=== PATIENT | female | born 1935 | race Caucasian/White ===

== ENCOUNTER 2021-07-22 12:09 | Observation (INO) | payer MEDICARE ==
[2021-07-22] MEDS ORDERED: Meclizine HCl 25 MG TAB ONE (12:53)
[2021-07-22 12:58] LABS: #Monocytes 0.2 thou/uL (0.11-0.59); #Neutrophils 4.8 thou/uL (1.40-6.50); %Basophils 0.2 % (0.0-1.0); %Eosinophils 0.2 % (0.0-10.0); %Lymphocytes 16.7 % (21.0-51.0); %Monocytes 3.3 % (0.0-10.0); %Neutrophils 79.5 % (42.0-75.0); Hemoglobin 12.8 g/dL (12.0-16.0); Mean Corpuscular HGB CONC 34.9 g/dL (32.0-36.0); Mean Corpuscular Hemoglobin 31.8 pg (27.0-31.0); Mean Platelet Volume 7.2 fL (7.4-10.4); Platelet Count 216 thou/uL (130-400); RBC Distribution Width 11.6 % (11.5-14.5); Red Blood Cell (RBC) Count 4.03 mill/uL (4.20-5.40); White Blood Cell (WBC) Count 6.1 thou/uL (4.8-10.8)
[2021-07-22 13:31] LABS: ALT (SGPT) 10 U/L (8-55); AST (SGOT) 13 U/L (5-34); Albumin 3.7 g/dL (3.4-4.8); Alkaline Phosphatase 87 U/L (40-110); Anion Gap 13 mmol/L (10-20); BUN (Urea Nitrogen) 18 mg/dL (9.8-20.1); Bilirubin, Total 1.3 mg/dL (0.2-1.2); Calc. Creatinine Clearance 0 mL/min (70-130); Calcium 9.1 mg/dL (7.8-10.44); Carbon Dioxide 26 mmol/L (23-31); Chloride 100 mmol/L (98-107); Globulin 2.4 g/dL (2.4-3.5); Glucose 136 mg/dL (83-110); Lipase 40 U/L (8-78); Potassium 3.9 mmol/L (3.5-5.1); Protein, Total 6.1 g/dL (5.8-8.1); Sodium 135 mmol/L (136-145)
[2021-07-22] MEDS ORDERED: Aspirin Chewable 81 MG TAB ONE (14:50)
[2021-07-22] MEDS ORDERED: Acetaminophen 650 MG Suppository PR PRN (17:22)
[2021-07-22] MEDS ORDERED: Calcium Carbonate 500 MG ChewTAB PO PRN (17:22)
[2021-07-22] MEDS ORDERED: Senokot S 8.6-50 MG TAB PO PRN (17:22)
[2021-07-22] MEDS ORDERED: Ondansetron PF 4 MG/2 ML Vial IVP PRN (17:22)
[2021-07-22] MEDS ORDERED: Acetaminophen 325 MG TAB PO PRN (17:22)
[2021-07-22] MEDS ORDERED: Ondansetron ODT 4 MG TAB PO PRN (17:22)
[2021-07-22 23:27] VITALS: BMI 23.1
[2021-07-23 06:21] LABS: Hemoglobin A1c 5.2 % (4.0-6.0)
[2021-07-23 06:36] LABS: Anion Gap 11 mmol/L (10-20); BUN (Urea Nitrogen) 17 mg/dL (9.8-20.1); Calc. Creatinine Clearance 63 mL/min (70-130); Calcium 8.9 mg/dL (7.8-10.44); Carbon Dioxide 28 mmol/L (23-31); Cardiac Risk 2.4 (Less than 4.5); Chloride 103 mmol/L (98-107); Cholesterol 104 mg/dl (< 200 Desired); Glucose 90 mg/dL (83-110); HDL Cholesterol 43 mg/dL (>60 Neg Risk); LDL Cholesterol, Calculated 51 mg/dL; Potassium 3.5 mmol/L (3.5-5.1); Sodium 138 mmol/L (136-145); Triglycerides 50 mg/dL (Less than 150)
[2021-07-23] MEDS: Enoxaparin Sodium 40 MG/0.4 ML SYRINGE SC SCH (09:01)
[2021-07-23] MEDS ORDERED: Meclizine HCl 25 MG TAB PO PRN (10:10)
[2021-07-23 11:55] LABS: SARS-CoV-2 PCR by NAA Not Detected (NotDetected)
[2021-07-23] MEDS ORDERED: Aspirin 81 mg Enteric Coated Tablet PO SCH (16:00)
[2021-07-23] MEDS ORDERED: hydrALAZINE 20 MG/ML VIAL SLOW IVP SCH ×2 (16:45→18:30)
[2021-07-23] MEDS ORDERED: Atorvastatin Calcium 20 MG TAB PO SCH (21:00)
[2021-07-23] MEDS ORDERED: Polyethylene Glycol 3350 17 GM Packet PO SCH (21:00)
[2021-07-23] MEDS: Carvedilol 25 MG TAB PO SCH (21:00)
[2021-07-24] MEDS ORDERED: Aspirin 81 mg Enteric Coated Tablet PO SCH (09:00)
[2021-07-24] MEDS ORDERED: Saccharomyces boulardii 250 MG CAP PO SCH (09:00)
[2021-07-24] MEDS ORDERED: Hydrochlorothiazide 25 MG TAB PO SCH (09:00)
[2021-07-24] MEDS ORDERED: hydrALAZINE 25 MG TAB PO SCH (09:00)
[2021-07-24] MEDS: Carvedilol 25 MG TAB PO SCH (09:07)
[2021-07-24] MEDS: Enoxaparin Sodium 40 MG/0.4 ML SYRINGE SC SCH (09:08)
[2021-07-24 12:15] VITALS: BP 118/51; TEMP 98.5
== END 2021-07-24 14:35 | disposition home or self-care (01) ==
LOC: ERS 12:09 → ERHOLD 15:30 → 3SE 19:42
PROVIDERS: ADMIT Internal Medicine; ATTEND Internal Medicine
DX: R42 Dizziness and giddiness (principal); I10 Essential (primary) hypertension; K21.9 Gastro-esophageal reflux disease without esophagitis; E78.5 Hyperlipidemia, unspecified; Z20.822 Contact with and (suspected) exposure to COVID-19; Z88.0 Allergy status to penicillin; Z88.1 Allergy status to other antibiotic agents; Z88.2 Allergy status to sulfonamides; Z88.8 Allergy status to other drugs, medicaments and biological substances; Z91.09 Other allergy status, other than to drugs and biological substances; Z79.82 Long term (current) use of aspirin; Z79.899 Other long term (current) drug therapy; Z90.49 Acquired absence of other specified parts of digestive tract
CPT/HCPCS: 70450; 70551; 71045; 80048; 80053; 80061; 83036; 83690; 84484; 85025; 93005; 96372 ×2; 96374; 96376; 97116; 97139 ×5; 97535; 99285; G0378 ×4; U0003; U0005; 36415; J0360; J1650

== ENCOUNTER 2022-12-04 08:52 | Outpatient (CLI) | payer MEDICARE | END 2022-12-04 08:53 | disposition home or self-care (01) | LOC: TBSIIMAG 08:52 | PROVIDERS: ATTEND Family Medicine | DX: M48.062 Spinal stenosis, lumbar region with neurogenic claudication (principal); M51.16 Intervertebral disc disorders with radiculopathy, lumbar region; M47.26 Other spondylosis with radiculopathy, lumbar region; M25.78 Osteophyte, vertebrae | CPT/HCPCS: 72148 ==

== ENCOUNTER 2024-03-15 13:33 | Outpatient (CLI) | payer MEDICARE ==
[2024-03-15 14:53] LABS: Hematocrit 40.2 % (34.9-44.5); Hemoglobin 13.7 g/dL (12.0-15.5); Mean Corpuscular HGB CONC 34.1 g/dL (32.0-36.0); Mean Corpuscular Hemoglobin 29.8 pg (27.0-33.0); Mean Corpuscular Volume 87.6 fL (81.6-98.3); Mean Platelet Volume 10.5 fL (7.4-10.4); Platelet Count 234 10x3/uL (150-450); RBC Distribution Width 13.3 % (11.5-14.5); Red Blood Cell (RBC) Count 4.59 10x6/uL (3.90-5.03)
[2024-03-15 15:15] LABS: Anion Gap 14 mmol/L (10-20); BUN (Urea Nitrogen) 14 mg/dL (9.8-20.1); Calc. Creatinine Clearance 0 mL/min (70-130); Calcium 9.8 mg/dL (7.8-10.44); Carbon Dioxide 24 mmol/L (23-31); Chloride 104 mmol/L (98-107); Estimated GFR 72; Glucose 169 mg/dL (83-110); Potassium 4.1 mmol/L (3.5-5.1); Sodium 138 mmol/L (136-145)
== END 2024-03-15 13:34 | disposition home or self-care (01) ==
LOC: LABBT 13:33
PROVIDERS: ATTEND Internal Medicine Cardiovascular Disease
DX: Z01.812 Encounter for preprocedural laboratory examination (principal)
CPT/HCPCS: 80048; 85027

== ENCOUNTER → 2024-03-16 | Day surgery (SDC) | payer MEDICARE ==
[2024-03-15 14:19] VITALS: BMI 20.3
[~2024-03-16] MED LIST: Adenosine 6 mg (2 mL) VIAL ONE; Atropine Sulfate 1 mg/1 ml Vial ONE; Heparin 10,000 UNITS/ 10 ML VIAL ONE; Iopamidol 370 76% 100 ML VIAL ONE; Lidocaine 1% (PF) 30 ML VIAL ONE; Nitroglycerin 50 MG/250 ML BOT 0 ML ONE
== END ==
LOC: SDC 07:28
PROVIDERS: ATTEND Internal Medicine Cardiovascular Disease
PROC: 4A023N8 Measurement of Cardiac Sampling and Pressure, Bilateral, Percutaneous Approach (ICD-10-PCS; principal; 2024-03-16)
DX: R06.02 Shortness of breath (principal); I34.0 Nonrheumatic mitral (valve) insufficiency; I10 Essential (primary) hypertension; K21.9 Gastro-esophageal reflux disease without esophagitis; Z90.710 Acquired absence of both cervix and uterus; Z91.048 Other nonmedicinal substance allergy status; Z88.8 Allergy status to other drugs, medicaments and biological substances; Z79.899 Other long term (current) drug therapy; Z90.49 Acquired absence of other specified parts of digestive tract; Z90.89 Acquired absence of other organs
CPT/HCPCS: 93460; C1751; C1760; C1769 ×2; C1887; C1894 ×2; J2001; J0153; J0461; J1644; Q9967

== ENCOUNTER 2024-11-09 08:46 | Inpatient (IN) | payer MEDICARE ==
[2024-11-09 09:49] LABS: INR-International Normal Ratio 1.1; PTT 31.9 sec (22.9-36.1); Prothrombin Time 14.1 sec (12.0-14.7)
[2024-11-09 10:26] LABS: #Basophils Less than 0.03 10x3/uL (0.0-0.2); %Basophils 0.2 % (0.0-1.0); %Eosinophils 0.3 % (0.0-10.0); %Lymphocytes 9.7 % (21.0-51.0); %Monocytes 2.6 % (0.0-10.0); %Neutrophils 86.4 % (42.0-75.0); Hematocrit 37.4 % (36.0-47.0); Hemoglobin 12.4 g/dL (12.0-16.0); Mean Corpuscular HGB CONC 33.2 g/dL (32.0-36.0); Mean Corpuscular Hemoglobin 29.4 pg (27.0-31.0); Mean Corpuscular Volume 88.6 fL (78.0-98.0); Mean Platelet Volume 10.8 fL (7.4-10.4); Platelet Count 170 10x3/uL (130-400); RBC Distribution Width 12.7 % (11.5-14.5); Red Blood Cell (RBC) Count 4.22 mill/uL (4.20-5.40)
[2024-11-09 10:42] LABS: ALT (SGPT) 14 U/L (Less than 34); AST (SGOT) 24 U/L (11-34); Albumin 3.3 g/dL (3.1-4.5); Alkaline Phosphatase 59 U/L (40-110); Anion Gap 11 mmol/L (10-20); BUN (Urea Nitrogen) 11 mg/dL (9.8-20.1); Bilirubin, Total 0.9 mg/dL (0.3-1.2); Calc. Creatinine Clearance 0 mL/min (70-130); Calcium 8.8 mg/dL (7.8-10.44); Carbon Dioxide 30 mmol/L (23-31); Chloride 102 mmol/L (98-107); Estimated GFR 88; Globulin 2.5 g/dL (2.4-3.5); Glucose 130 mg/dL (83-110); Magnesium 1.8 mg/dL (1.6-2.6); Potassium 3.2 mmol/L (3.5-5.1); Protein, Total 5.8 g/dL (5.8-8.1); Sodium 140 mmol/L (136-145)
[2024-11-09 10:49] LABS: Troponin I Less than 0.010 ng/mL (< 0.028)
[2024-11-09] MEDS ORDERED: Glucagon 1 MG/ML KIT IM PRN (11:11)
[2024-11-09] MEDS ORDERED: hydrALAZINE 20 MG/ML VIAL SLOW IVP PRN (11:11)
[2024-11-09] MEDS ORDERED: Ondansetron PF 4 MG/2 ML Vial IVP PRN (11:11)
[2024-11-09] MEDS ORDERED: Dextrose 50% Abboject 50 ML SYRINGE SLOW IVP PRN (11:11)
[2024-11-09] MEDS ORDERED: Dextrose 5% in Water 1,000 ML IV PRN (11:11)
[2024-11-09] MEDS ORDERED: HYDROcodone/Acetaminophen 5/325 mg Tablet ONE ×3 (11:26→20:48)
[2024-11-09] MEDS ORDERED: CEFAZOLIN 2 GM in Sodium Chloride 0.9% 100 ML IVPB SCH (12:00)
[2024-11-09] MEDS ORDERED: Electrolyte Replacement Protocol 1 EACH FS SCH (12:15)
[2024-11-09] MEDS ORDERED: Boostrix 0.5 ML (Tdap) VIAL (>/=7 yrs of age) ONE (16:18)
[2024-11-09] MEDS ORDERED: Potassium Chloride 20 MEQ TAB ONE (16:18)
[2024-11-09] MEDS ORDERED: Magnesium 2 GM/50 ML BAG (IN WATER) ONE (16:19)
[2024-11-09] MEDS: Potassium Chloride 20 MEQ TAB PO SCH (16:27)
[2024-11-09] MEDS: Magnesium 2 GM/50 ML(in water) 2 GM in Premix 1 BAG IVPB SCH (16:39)
[2024-11-09] MEDS: TETANUS, DIPHTHERIA TOX,ADULT (TDVAX) 0.5 ML VIAL IM ONE (16:40)
[2024-11-09] MEDS: HYDROcodone/Acetaminophen 5/325 mg Tablet PO PRN (16:53)
[2024-11-09 19:07] LABS: Magnesium 2.5 mg/dL (1.6-2.6)
[2024-11-09] MEDS ORDERED: Metoprolol Tartrate 50 MG TAB ONE (20:48)
[2024-11-09] MEDS ORDERED: Famotidine 20 MG TAB ONE (20:49)
[2024-11-09] MEDS: Metoprolol Succinate XL 50 MG ER.TAB PO SCH (20:56)
[2024-11-09] MEDS: Dronedarone HCl 400 MG TAB PO SCH (20:56)
[2024-11-09] MEDS: Famotidine 20 MG TAB PO SCH (20:56)
[2024-11-09] MEDS: Megestrol Acetate 800 MG/20 ML UDCUP PO SCH (21:00)
[2024-11-09] MEDS ORDERED: Metoprolol Succinate XL 50 MG ER.TAB PO SCH (21:00)
[2024-11-10 04:38] LABS: #Basophils Less than 0.03 10x3/uL (0.0-0.2); %Basophils 0.3 % (0.0-1.0); %Eosinophils 2.5 % (0.0-10.0); %Lymphocytes 19.4 % (21.0-51.0); %Monocytes 4.8 % (0.0-10.0); %Neutrophils 72.6 % (42.0-75.0); Hematocrit 35.3 % (36.0-47.0); Hemoglobin 11.7 g/dL (12.0-16.0); Mean Corpuscular HGB CONC 33.1 g/dL (32.0-36.0); Mean Corpuscular Hemoglobin 29.4 pg (27.0-31.0); Mean Corpuscular Volume 88.7 fL (78.0-98.0); Mean Platelet Volume 10.6 fL (7.4-10.4); Platelet Count 151 10x3/uL (130-400); RBC Distribution Width 12.5 % (11.5-14.5); Red Blood Cell (RBC) Count 3.98 mill/uL (4.20-5.40)
[2024-11-10 05:17] LABS: Anion Gap 12 mmol/L (10-20); BUN (Urea Nitrogen) 12 mg/dL (9.8-20.1); Calc. Creatinine Clearance 72 mL/min (70-130); Calcium 8.7 mg/dL (7.8-10.44); Carbon Dioxide 26 mmol/L (23-31); Chloride 106 mmol/L (98-107); Estimated GFR 92; Glucose 110 mg/dL (83-110); Potassium 3.7 mmol/L (3.5-5.1); Sodium 140 mmol/L (136-145)
[2024-11-10] MEDS: Methocarbamol 500 MG TAB PO PRN (10:19)
[2024-11-10] MEDS ORDERED: fentaNYL PF 100 MCG/2 ML SYRINGE ONE (10:49)
[2024-11-10] MEDS ORDERED: PROPOFOL 20 ML ONE (10:49)
[2024-11-10] MEDS ORDERED: Ondansetron PF 4 MG/2 ML Vial ONE (10:51)
[2024-11-10] MEDS ORDERED: Lidocaine 1% PF 5 ML VIAL ONE (10:51)
[2024-11-10] MEDS ORDERED: Dexamethasone 20 MG/5 ML VIAL ONE (10:51)
[2024-11-10] MEDS ORDERED: CEFAZOLIN 2 GM VIAL ONE (11:38)
[2024-11-10] MEDS ORDERED: PHENYLEPHRINE-NS 100 MCG/ML 10 ML SYRINGE ONE (12:22)
[2024-11-10] MEDS ORDERED: Rocuronium Bromide 10 MG/ML (10ML VIAL) ONE (12:22)
[2024-11-10] MEDS ORDERED: SUGAMMADEX SODIUM 200 MG/2 ML VIAL ONE (13:36)
[2024-11-10] MEDS ORDERED: fentaNYL 50 mcg/mL 1 mL Vial ONE ×2 (14:08→14:36)
[2024-11-10] MEDS ORDERED: Non-Formulary Medication 1 EACH PO PRN (15:17)
[2024-11-10] MEDS ORDERED: Ondansetron HCl/PF 4 MG/2 ML Vial IVP PRN (15:30)
[2024-11-10] MEDS ORDERED: Promethazine HCl 25 MG/ML VIAL IM PRN (15:30)
[2024-11-10] MEDS: CEFAZOLIN 2 GM in Sodium Chloride 0.9% 100 ML IVPB SCH (20:40)
[2024-11-11 00:12] VITALS: BMI 22.4
[2024-11-11 05:03] LABS: #Basophils Less than 0.03 10x3/uL (0.0-0.2); #Eosinophils Less than 0.03 10x3/uL (0.0-0.7); %Basophils 0.2 % (0.0-1.0); %Lymphocytes 10.9 % (21.0-51.0); %Monocytes 5.5 % (0.0-10.0); %Neutrophils 83.2 % (42.0-75.0); Hemoglobin 11.1 g/dL (12.0-16.0); Mean Corpuscular HGB CONC 33.6 g/dL (32.0-36.0); Mean Corpuscular Hemoglobin 29.4 pg (27.0-31.0); Mean Corpuscular Volume 87.3 fL (78.0-98.0); Platelet Count 159 10x3/uL (130-400); RBC Distribution Width 12.7 % (11.5-14.5); Red Blood Cell (RBC) Count 3.78 mill/uL (4.20-5.40)
[2024-11-11 05:45] LABS: Anion Gap 15 mmol/L (10-20); BUN (Urea Nitrogen) 18 mg/dL (9.8-20.1); Calc. Creatinine Clearance 59 mL/min (70-130); Calcium 8.9 mg/dL (7.8-10.44); Carbon Dioxide 27 mmol/L (23-31); Chloride 102 mmol/L (98-107); Estimated GFR 88; Glucose 124 mg/dL (83-110); Potassium 3.9 mmol/L (3.5-5.1); Sodium 140 mmol/L (136-145)
[2024-11-11] MEDS: Saccharomyces boulardii 250 MG CAP PO SCH (09:40)
[2024-11-11] MEDS: Amlodipine 5 MG TAB PO SCH (09:40)
[2024-11-11] MEDS: Sacubitril 49 MG/Valsartan 51 MG TABLET PO SCH (09:40)
[2024-11-11] MEDS: Multivit, Therapeutic 1 TAB PO SCH (09:40)
[2024-11-11] MEDS: Pantoprazole 40 MG DR.TAB PO SCH (09:41)
[2024-11-11] MEDS: Magnesium 2 GM/50 ML(in water) 2 GM in Premix 1 BAG IVPB SCH (09:51)
[2024-11-12] MEDS: Apixaban 2.5 MG TAB PO SCH (10:10)
[2024-11-12] MEDS: Acetaminophen/Codeine 30-300mg Tablet PO PRN (20:43)
[2024-11-13 09:58] LABS: #Basophils Less than 0.03 10x3/uL (0.0-0.2); %Basophils 0.1 % (0.0-1.0); %Eosinophils 1.5 % (0.0-10.0); %Lymphocytes 20.8 % (21.0-51.0); %Monocytes 4.6 % (0.0-10.0); %Neutrophils 72.7 % (42.0-75.0); Hematocrit 34.5 % (36.0-47.0); Hemoglobin 11.5 g/dL (12.0-16.0); Mean Corpuscular HGB CONC 33.3 g/dL (32.0-36.0); Mean Corpuscular Hemoglobin 29.3 pg (27.0-31.0); Mean Corpuscular Volume 87.8 fL (78.0-98.0); Platelet Count 185 10x3/uL (130-400); RBC Distribution Width 12.9 % (11.5-14.5); Red Blood Cell (RBC) Count 3.93 mill/uL (4.20-5.40)
[2024-11-13] MEDS: Acetaminophen 325 MG TAB PO PRN (10:41)
[2024-11-13 14:44] VITALS: BMI 22.6
[2024-11-14] MEDS: Ondansetron ODT 4 MG TAB PO PRN (02:27)
[2024-11-14 15:34] VITALS: BP 116/65; TEMP 97.8
== END 2024-11-14 17:59 | disposition swing bed (61) | DRG 522 ==
LOC: ERS 08:46 → ERHOLD 11:18 → 2NO 23:07 → SURG A 11-12 18:21
PROVIDERS: ADMIT Specialist; ATTEND Surgery
PROC: 0SRR0JZ Replacement of Right Hip Joint, Femoral Surface with Synthetic Substitute, Open Approach (ICD-10-PCS; principal; 2024-11-10)
DX: S72.001A Fracture of unspecified part of neck of right femur, initial encounter for closed fracture (principal); I48.20 Chronic atrial fibrillation, unspecified; S09.93XA Unspecified injury of face, initial encounter; I10 Essential (primary) hypertension; W19.XXXA Unspecified fall, initial encounter; Z90.710 Acquired absence of both cervix and uterus; Z98.890 Other specified postprocedural states; Z79.899 Other long term (current) drug therapy; R55 Syncope and collapse
CPT/HCPCS: 36415; 70450; 71045; 72125; 72170; 80048; 80053; 82533; 83735; 83880; 84443; 84484; 85025; 85610; 85730; 90714; 90715; 93005; C1713; C1776; G0390; J1100; J2405; J2704; J3010; J3475; Q0162